=== PATIENT | male | born 1985 | race Caucasian/White ===

== ENCOUNTER 2022-05-08 07:57 | Emergency (ER) | payer OTHER ==
[~2022-05-08] VITALS: Ht 180.3 cm; Wt 80.7 kg
--- NOTE | 2022-05-08 08:20 | NUR ---
BIBS W/ C/O LESION TO RECTAL/PREINEAL AREA. PT ENDORSES DIAGNOSIS OF SYPHILIS 04/06, REQUESTING FOR PENICILLIN BUT PT HAS DOCUMENTED ALLERGY FOR SAID DRUG CLASS. TO ER BED 6, AWAITING MD MARQUES.
[2022-05-08] MEDS ORDERED: PENICILLIN G BENZATHINE 2.4 MMU/4 ML ML IM ONE ×2 (08:30→08:44)
--- NOTE | 2022-05-08 08:35 | NUR ---
PT SEEN BY DR. BARBOZA AT BEDSIDE.
--- NOTE | 2022-05-08 08:57 | NUR ---
pt medicated. given im to L buttock. placed on monitor.
--- NOTE | 2022-05-08 09:39 | NUR ---
VS TAKEN AND MONITORED. PT RESTING IN BED, NOT IN ACUTE DISTRESS.
[2022-05-08] MEDS ORDERED: EPIN0.3P3 IM (09:57)
--- NOTE | 2022-05-08 10:02 | NUR ---
Patient discharged to home in stable condition. Written and verbal after care instructions given. Patient verbalizes understanding of instruction. Addendum: 05/08/22 at 1002 by RENEE No adverse reaction noted s/p Penicillin inj administration.
[2022-05-08 10:03] VITALS: BP 120/60
== END 2022-05-08 10:04 | disposition home or self-care (01) ==
LOC: ER 08:08
DX: A53.9 Syphilis, unspecified (principal); Z88.0 Allergy status to penicillin
CPT/HCPCS: 99283; 96372; J0558

== ENCOUNTER 2023-05-22 09:40 | Emergency (ER) | payer MEDICAID, OTHER ==
[~2023-05-22] VITALS: Ht 182.9 cm; Wt 79.4 kg
[~2023-05-22 09:40] MED LIST: EPIN0.3P3 IM
[2023-05-22] MEDS ORDERED: ONDANSETRON HCL/PF 4 MG/2 ML VIAL IVP ONE (10:00)
[2023-05-22] MEDS ORDERED: IV NS 0.9% 1,000 ML BAG IV ONE (10:00)
[2023-05-22] MEDS ORDERED: ONDANSETRON HCL/PF 4 MG/2 ML VIAL ONE (10:07)
[2023-05-22 10:21] LABS: HEMOGLOBIN 14.5 g/dL (13.5-17.5)
[2023-05-22 10:22] LABS: CALCIUM, SERUM 8.8 mg/dL (8.5-10.1); CREATININE 0.9 mg/dL (0.6-1.3)
[2023-05-22 10:23] LABS: BASOPHILS # (AUTO) 0.2 K/uL (0.0-0.2); EOSINOPHILS % (AUTO) 0.9 % (0.0-6.0); HEMATOCRIT 40 % (39-51); LYMPHOCYTES # (AUTO) 0.4 K/uL (0.8-4.8); LYMPHOCYTES % (AUTO) 9.4 % (20.0-44.0); MEAN CORPUSCULAR HEMOGLOBIN 32 PG (26.0-33.0); MEAN CORPUSCULAR HGB CONC 36 g/dl (31.0-36.0); MEAN CORPUSCULAR VOLUME 88 fL (80-96); MONOCYTES # (AUTO) 0.4 K/uL (0.1-1.30); MONOCYTES % (AUTO) 10.2 % (2.0-12.0); NEUTROPHILS % (AUTO) 73.5 % (43.0-81.0); PLATELET COUNT (AUTO) 239 K/uL (150-450); RED BLOOD CELL COUNT(AUTO) 4.55 MIL/uL (4.5-6.0); RED CELL DISTRIBUTION WIDTH 13.4 % (11.5-15.0)
[2023-05-22 10:24] LABS: POTASSIUM 2.7 mmol/L (3.5-5.1)
[2023-05-22 10:29] LABS: ALBUMIN 3.6 g/dL (3.4-5.0); BILIRUBIN,DIRECT 0.2 mg/dL (0.0-0.2); BILIRUBIN,TOTAL 0.6 mg/dL (0.2-1.0); TOTAL PROTEIN, SERUM 7.4 g/dL (6.4-8.2)
[2023-05-22] MEDS ORDERED: POTASSIUM CHLORIDE 20 MEQ TAB.PRT.SR PO ONE ×2 (10:30→10:31)
[2023-05-22 10:31] LABS: APPEARANCE,URINE CLEAR (CLEAR); BILIRUBIN,URINE 1+ (NEGATIVE); BLOOD, URINE TRACE-INTA Ery/uL (NEGATIVE); COLOR,URINE YELLOW (YELLOW); KETONES,URINE NEGATIVE (NEGATIVE); LEUKOCYTE ESTERASE ,URINE NEGATIVE (NEGATIVE); NITRITE, URINE NEGATIVE (NEGATIVE); PH,URINE 6.5 (5.0-8.0); PROTEIN,URINE 1+ mg/dl (NEGATIVE); UGLUCOSE NEGATIVE (NEGATIVE)
[2023-05-22] MEDS ORDERED: POTASSIUM CL. PREMIX PERIPHER. 50 ML ONE ×2 (10:31→11:47)
[2023-05-22 10:35] LABS: ADD URINE CULTURE NO; BACTERIA,URINE Rare /HPF (None Seen); SQUAMOUS EPITHELIAL CELL,UR Few /HPF (None Seen); WBC,URINE 0-2 /HPF (0-3)
[2023-05-22] MEDS: POTASSIUM CL. PREMIX PERIPHER. 50 ML IV SCH ×2 (10:45→11:50)
[2023-05-22] MEDS ORDERED: diphenhydrAMINE HCL 50 MG/ML VIAL ONE (10:55)
[2023-05-22] MEDS ORDERED: METOCLOPRAMIDE HCL 10 MG/2 ML VIAL ONE (10:55)
[2023-05-22] MEDS ORDERED: IV NS 0.9% 1,000 ML IV ONE ×2 (11:00→12:30)
[2023-05-22] MEDS ORDERED: diphenhydrAMINE HCL 50 MG/ML VIAL IV ONE (11:00)
[2023-05-22] MEDS ORDERED: METOCLOPRAMIDE HCL 10 MG/2 ML VIAL IV ONE (11:00)
[2023-05-22] MEDS ORDERED: CEFTRIAXONE 1 G VIAL IM ONE (12:30)
[2023-05-22] MEDS ORDERED: DOXY100C2 PO (12:32)
[2023-05-22] MEDS ORDERED: ONDA4TAB5 PO (12:32)
[2023-05-22] MEDS ORDERED: CEFTRIAXONE 1 G VIAL ONE (12:47)
[2023-05-22] MEDS ORDERED: LIDOCAINE /MPF 1% VIAL 5 ML VIAL ONE (12:48)
[2023-05-22] MEDS ORDERED: IV NS 0.9% 500 ML BAG IV ONE (13:00)
[2023-05-22 13:52] VITALS: BP 111/67; TEMP 98.1; O2SAT 97
== END 2023-05-22 13:52 | disposition home or self-care (01) ==
LOC: ER 09:51
DX: E87.6 Hypokalemia (principal); K62.89 Other specified diseases of anus and rectum; F31.9 Bipolar disorder, unspecified; F90.9 Attention-deficit hyperactivity disorder, unspecified type; Z79.899 Other long term (current) drug therapy; Z88.0 Allergy status to penicillin; R11.2 Nausea with vomiting, unspecified; R19.7 Diarrhea, unspecified; R10.9 Unspecified abdominal pain
CPT/HCPCS: 99285; 74176; 96365; 96375; 96361; 96366; 96372; 85025; 80048; 83690; 80076; 81001; 36415; J1200; J2765; J0696; J2405; J7030 ×2; J3490; J3480 ×2

== ENCOUNTER 2023-10-09 13:33 | Emergency (ER) | payer MEDICAID ==
[~2023-10-09] VITALS: Ht 167.6 cm; Wt 77.1 kg
[~2023-10-09 13:33] MED LIST changes: +DOXY100C2 PO; +ONDA4TAB5 PO
[2023-10-09] MEDS ORDERED: LORAZEPAM INJ 2 MG/ML VIAL IM ONE (14:30)
[2023-10-09] MEDS ORDERED: diphenhydrAMINE HCL 50 MG/ML VIAL IM ONE (14:30)
[2023-10-09] MEDS ORDERED: HALOPERIDOL LACTATE INJ 5 MG/ML VIAL IM ONE (14:30)
[2023-10-09] MEDS ORDERED: diphenhydrAMINE HCL 50 MG/ML VIAL ONE (15:00)
[2023-10-09] MEDS ORDERED: HALOPERIDOL LACTATE INJ 5 MG/ML VIAL ONE (15:01)
[2023-10-09] MEDS ORDERED: LORAZEPAM INJ 2 MG/ML VIAL ONE (15:30)
[2023-10-09 15:32] LABS: BASOPHILS % (AUTO) 0.8 % (0.0-2.0); EOSINOPHILS # (AUTO) 0.2 K/uL (0.0-0.7); EOSINOPHILS % (AUTO) 3.4 % (0.0-6.0); HEMATOCRIT 48 % (39-51); HEMOGLOBIN 16.1 g/dL (13.5-17.5); LYMPHOCYTES # (AUTO) 1.4 K/uL (0.8-4.8); LYMPHOCYTES % (AUTO) 24.8 % (20.0-44.0); MEAN CORPUSCULAR HEMOGLOBIN 31 PG (26.0-33.0); MEAN CORPUSCULAR HGB CONC 33 g/dl (31.0-36.0); MEAN CORPUSCULAR VOLUME 92 fL (80-96); MONOCYTES # (AUTO) 0.5 K/uL (0.1-1.30); MONOCYTES % (AUTO) 9.2 % (2.0-12.0); NEUTROPHILS # (AUTO) 3.6 K/uL (1.8-8.9); NEUTROPHILS % (AUTO) 61.8 % (43.0-81.0); PLATELET COUNT (AUTO) 284 K/uL (150-450); RED BLOOD CELL COUNT(AUTO) 5.23 MIL/uL (4.5-6.0); RED CELL DISTRIBUTION WIDTH 13.6 % (11.5-15.0); WHITE BLOOD COUNT (AUTO) 5.8 K/uL (4.3-11.0)
[2023-10-09 15:46] LABS: CALCIUM, SERUM 9.5 mg/dL (8.5-10.1); CARBON DIOXIDE 24 mmol/L (21-32); CHLORIDE 102 mmol/L (98-107); GLUCOSE 104 mg/dL (74-106); POTASSIUM 3.7 mmol/L (3.5-5.1); SODIUM SERUM 138 mmol/L (136-145); UREA NITROGEN, BLOOD 13 mg/dL (7-18)
[2023-10-09 15:52] LABS: ALANINE AMINOTRANSFERASE 30 U/L (12-78); ALBUMIN 4.3 g/dL (3.4-5.0); ALCOHOL, BLOOD < 3 mg/dL (0-10); ALKALINE PHOSPHATASE 101 U/L (46-116); ASPARTATE AMINOTRANSFERASE 35 U/L (15-37); BILIRUBIN,DIRECT 0.2 mg/dL (0.0-0.2); BILIRUBIN,TOTAL 0.8 mg/dL (0.2-1.0); SALICYLATE 3.6 mg/dL (2.8-20.0); TOTAL PROTEIN, SERUM 7.9 g/dL (6.4-8.2)
[2023-10-09 15:53] LABS: ACETAMINOPHEN 0 ug/ml (10-30)
[2023-10-09 20:24] LABS: APPEARANCE,URINE CLEAR (CLEAR); BILIRUBIN,URINE 1+ (NEGATIVE); BLOOD, URINE NEGATIVE Ery/uL (NEGATIVE); COLOR,URINE YELLOW (YELLOW); KETONES,URINE TRACE mg/dL (NEGATIVE); LEUKOCYTE ESTERASE ,URINE NEGATIVE (NEGATIVE); NITRITE, URINE NEGATIVE (NEGATIVE); PH,URINE 5.5 (5.0-8.0); PROTEIN,URINE NEGATIVE (NEGATIVE); UGLUCOSE NEGATIVE (NEGATIVE); UROBILINOGEN,URINE 0.2 EU/dL (0.2)
[2023-10-09 22:00] LABS: AMPHETAMINE, URINE POSITIVE (NEGATIVE); BARBITURATE, URINE NEGATIVE (NEGATIVE); BENZODIAZEPINE, URINE NEGATIVE (NEGATIVE); CANNABINOID, URINE NEGATIVE (NEGATIVE); COCCAINE, URINE NEGATIVE (NEGATIVE); OPIATE, URINE NEGATIVE (NEGATIVE); PHENCYCLIDINE SCREEN,URINE NEGATIVE (NEGATIVE)
[2023-10-10 11:09] VITALS: BP 124/80; TEMP 98.3; O2SAT 99
== END 2023-10-10 11:09 | disposition home or self-care (01) ==
LOC: ER 13:41
DX: F23 Brief psychotic disorder (principal); R45.1 Restlessness and agitation; F19.10 Other psychoactive substance abuse, uncomplicated; F31.9 Bipolar disorder, unspecified; Z88.0 Allergy status to penicillin; Z20.822 Contact with and (suspected) exposure to COVID-19
CPT/HCPCS: 99291; 96372 ×2; 85025; 80048; 80076; 81003; 36415; 87426; 80143; 80320; 80307; J2060; J1200; J1630; G0480